=== PATIENT | female | born 1945 | race Asian ===

== ENCOUNTER 2020-05-22 12:40 | Emergency (ER) | payer MEDICARE, SELFPAY ==
[2020-05-22 13:59] VITALS: BP 151/91; PULSE 83; RESP 16; TEMP 36.1; O2SAT 97; BMI 22.9
--- NOTE | 2020-05-22 14:11 | ED_ITS ---
HPI - General Adult General Chief complaint: General Medical Stated complaint: med refill Time Seen by Provider: 05/22/20 13:52 Source: patient Mode of arrival: ambulatory Limitations: no limitations History of Present Illness HPI narrative: Patient is here seeking medication refill. She tells me she has a few tablets left of all of her medications and her last doses were this morning. She moved here from [place] and has an upcoming appointment with a primary care doctor on August 13 (Dr Hastings). No complaints. Associated symptoms: denies other symptoms Related Data Previous Rx's Medication Instructions Recorded atorvastatin 10 mg PO DAILY #60 tab 05/22/20 bisoprolol fumarate 2.5 mg PO BID #120 tab 05/22/20 hydralazine 25 mg PO BID #120 tab 05/22/20 losartan-hydrochlorothiazide 1 tab PO BID #120 tab 05/22/20 metformin 1,000 mg PO BID #120 tab 05/22/20 Allergies Allergy/AdvReac Type Severity Reaction Status Date / Time No Known Allergies Allergy Verified 05/22/20 13:59 Review of Systems Review of Systems: Yes all other systems are reviewed and are negative Constitutional: Constitutional: Reports no additional constitutional complaints, Denies body ache(s), Denies chills, Denies fever(s), Denies headache(s) and Denies weakness Eyes: Eyes: Reports no additional eye complaints and Denies change in vision ENT: Reports system reviewed and no additional complaints, except as documented, Denies dizziness, Denies headache(s), Denies nasal congestion, Denies nasal discharge and Denies neck pain Cardiovascular: Cardiovascular: Reports no additional cardiovascular complaints, Denies chest pain, Denies leg edema and Denies dyspnea Respiratory: Respiratory: Reports no additional respiratory complaints, Denies cough and Denies dyspnea Gastrointestinal: Gastrointestinal: Reports no additional gastrointestinal complaints, Denies abdominal pain, Denies diarrhea, Denies nausea and Denies vomiting Genitourinary: Genitourinary: Reports no additional female genitourinary complaints and Denies urinary incontinence Musculoskeletal: Musculoskeletal: Reports no additional musculoskeletal complaints, Denies back pain, Denies arthralgias, Denies joint swelling, Denies neck pain, Denies numbness and Denies tingling Integumentary/Breasts: Skin/Breast: Reports system reviewed and no additional complaints, except as docu and Denies rash Neurologic: Reports system reviewed and no additional complaints, except as documented, Denies Abnormal speech present, Denies dizziness, Denies headach e(s), Denies numbness, Denies tingling and Denies weakness PMFSH Past Medical History Attestation statement: The following information was validated with the patient. Source: old records reviewed, obtained from family and nursing notes reviewed Medical History Diabetes High cholesterol HTN (hypertension) Trigger finger of right thumb Surgical History H/O: hysterectomy Social History Social History Advance Directives: No Advance Directives Information Provided: No Physical Exam Vital Signs: Vital Signs: Vital Signs Temp Pulse Resp BP Pulse Ox 05/22/20 13:59 96.9 F 83 16 151/91 H 97 Body Mass Index 22.9 Const: General: cooperative, healthy appearing, comfortable and no acute distress Orientation/consciousness: patient oriented x3 Limitations: no limitations HENMT: Head: Yes normal to inspection Ears: hearing grossly normal bilaterally General nose exam: Normal external nose present Face and sinus: Yes normal facial exam Mouth: Normal oral and palatal mucosa present Throat: Yes posterior oropharynx normal Eyes: General: appearance normal, both eyes and all related structures Pupils: Equal, round and reactive pupils present Neck: Neck: Yes normal visual inspection Chest: Chest palpation & inspection: normal inspection of the chest Resp: Effort & Inspection: normal respiratory effort Auscultation: clear to auscultation bilaterally Cardio: Rate: regular rate Rhythm: regular rhythm Peripheral pulses: Peripheral pulses 2+ throughout GI: Inspection: Yes normal to inspection Palpation (GI): Soft to palpation and nontender Auscultation: normal bowel sounds Back/Spine/Pelvis: Thoracic/Lumbar Spine: thoracic and lumbar spine normal to inspection Skin: General skin exam: no rashes or lesions noted Neuro: General: patient oriented x3, no focal motor deficits and normal sensation to monofilament Cranial nerves: Yes Equal, round and reactive pupils present Cognition (Neuro): normal cognition Speech: No Abnormal speech present Gait exam (Neuro): Normal gait present Motor exam (neuro): 5/5 motor strength present throughout Extrem: General: Yes normal to inspection Course Course Course Narrative: Gave 2 month supply of medications. She has appt with new PCP 08/13. Discharge Plan Discharge Clinical Impression: Medication refill Patient Disposition: Home, Self-Care Instructions: Medicine Refill (ED) Additional Instructions: Keep your appointment with Dr Hastings Prescriptions: New losartan-hydrochlorothiazide 50-12.5 mg tablet 1 tab PO BID Qty: 120 RF: 0 hydralazine 25 mg tablet 25 mg PO BID Qty: 120 RF: 0 metformin 1,000 mg tablet 1,000 mg PO BID Qty: 120 RF: 0 atorvastatin 10 mg tablet 10 mg PO DAILY Qty: 60 RF: 0 bisoprolol fumarate 5 mg tablet 2.5 mg PO BID Qty: 120 RF: 0 Referrals: Po,Varun Guardado MD [Primary Care Provider] - 2 days
== END 2020-05-22 14:50 | disposition home or self-care (01) ==
PROVIDERS: Emergency Provider Emergency Medicine; PCP Internal Medicine
DX: Z76.0 Encounter for issue of repeat prescription (principal)
CPT/HCPCS: 99283

== ENCOUNTER 2020-08-09 07:32 | Outpatient (REF) | payer MEDICARE, SELFPAY ==
[2020-08-09 08:35] LABS: MANUAL DIFF FLAG NO
[2020-08-09 08:40] LABS: Basophils Absolute Auto 0.1 X10*3/uL (0.0-0.2); Basophils Percent Auto 0.7 % (0-2); Eosinophils Absolute Auto 0.4 X10*3/uL (0.0-0.4); Hematocrit 42.9 % (37-47); Hemoglobin 14.7 g/dl (12.0-16.0); Imm Gran Abs Auto 0.05 X10*3/uL (0.00-0.03); Imm Gran Pct Auto 0.7 % (0.0-0.4); Lymphocytes Absolute Auto 2.4 X10*3/uL (1.2-4.9); Lymphocytes Percent Auto 31.3 % (20-40); Mean Corpuscular HGB Conc 34.3 g/dl (31.0-35.0); Mean Corpuscular Hemoglobin 29.5 pg (27.0-33.0); Mean Platelet Volume 10.4 fL (9.4-12.3); Monocytes Absolute Auto 0.7 X10*3/uL (0.1-1.2); Neutrophils Percent Auto 53.3 % (45-73); Platelet Count 272 X10*3/uL (160-400); Red Blood Count 4.99 X10*6/uL (4.20-5.50); White Blood Count 7.6 X10*3/uL (4.8-10.8)
[2020-08-09 08:57] LABS: Anion Gap 13 (12-20); Blood Urea Nitrogen 16 mg/dL (9-16); Calcium 10.2 mg/dL (8.4-10.2); Carbon Dioxide 31 mmol/L (22-29); Chloride 95 mmol/L (96-108); Cholesterol 144 mg/dL; Estimated Glomerular Filt Rate > 60; Glucose Fasting 143 mg/dL (60-99); HDL Cholesterol 59 mg/dL; LDL Cholesterol Calculated 62 mg/dl; Potassium 4.6 mmol/l (3.3-5.1); Sodium 134 mmol/L (135-145); Triglycerides 115 mg/dL
[2020-08-09 09:14] LABS: Estimated Average Glucose 137 mg/dL; Hemoglobin A1c % 6.4 %
== END 2020-08-09 07:33 | disposition home or self-care (01) ==
LOC: HO.LAB 07:32
PROVIDERS: PCP Internal Medicine; Visit Provider Nurse Practitioner Family
DX: E78.00 Pure hypercholesterolemia, unspecified (principal); E11.9 Type 2 diabetes mellitus without complications; I10 Essential (primary) hypertension; H57.9 Unspecified disorder of eye and adnexa
CPT/HCPCS: 36415; 80048; 80061; 83036; 85025

== ENCOUNTER 2020-08-17 11:48 | Outpatient (REF) | payer MEDICARE, SELFPAY ==
--- NOTE | 2020-08-17 11:53 | ECG_ITS ---
Test Reason : CP Blood Pressure : / mmHG Vent. Rate : 070 BPM Atrial Rate : 070 BPM P-R Int : 150 ms QRS Dur : 084 ms QT Int : 454 ms P-R-T Axes : 068 016 138 degrees QTc Int : 490 ms Normal sinus rhythm Left atrial enlargement Left ventricular hypertrophy with repolarization abnormality ; ischemia cannot be excluded ECG No previous ECGs available Referred By: Varun Sesay Electronically Signed By: CESARIO CORREA
[2020-08-17 13:48] LABS: Free T4 (Free Thyroxine) 1.23 ng/dL (0.71-1.85); Thyroid Stimulating Hormone 1.37 uIU/mL (0.32-4.0); Vitamin D 25-OH Total 34.4 ng/mL (>30)
[2020-08-17 13:58] LABS: Creatinine Urine 49.35 mg/dL; Microalbum/Creatinine Ratio Ur 735.5 ug/mg cr
[2020-08-17 14:07] LABS: Folate > 20.0 ng/mL (> or = 4.0); Vitamin B12 489 pg/mL (200-900)
[2020-08-17 14:16] LABS: Glucose Urine UA NEG (NEG); Leukocyte Esterase Urine NEG (NEG); Nitrite Urine NEG (NEG); PH 6.5 (5.0-8.0); Urine Blood NEG (NEG); Urine Ketones NEG (NEG); Urine Protein 1+ MG/DL (NEG-TRACE)
[2020-08-17 14:20] LABS: Appearance Urine CLEAR; Color Urine YELLOW
[2020-08-17 15:05] LABS: Mucus Urine TRACE /LPF; RBC Urine 0-2 /HPF (0); WBC Urine 0 /HPF (0-4)
== END 2020-08-17 11:49 | disposition home or self-care (01) ==
LOC: HO.LAB 11:48
PROVIDERS: PCP Internal Medicine; Visit Provider Internal Medicine
DX: E11.65 Type 2 diabetes mellitus with hyperglycemia (principal); R79.89 Other specified abnormal findings of blood chemistry
CPT/HCPCS: 36415; 81001; 82043; 82306; 82607; 82746; 84439; 84443; 93005

== ENCOUNTER 2021-02-28 06:57 | Outpatient (REF) | payer MEDICARE, SELFPAY ==
[2021-02-28 08:54] LABS: Blood Urea Nitrogen 18 mg/dL (9-16); Estimated Glomerular Filt Rate > 60
[2021-02-28 10:27] LABS: Glucose Urine UA NEG (NEG); Leukocyte Esterase Urine 1+ (NEG); Nitrite Urine NEG (NEG); Urine Blood NEG (NEG); Urine Ketones NEG (NEG); Urine Protein TRACE MG/DL (NEG-TRACE)
[2021-02-28 10:34] LABS: Color Urine YELLOW
[2021-02-28 10:35] LABS: Appearance Urine HAZY
[2021-02-28 11:04] LABS: Creatinine Urine 91.79 mg/dL
[2021-02-28 11:56] LABS: Bacteria Urine TRACE /LPF; RBC Urine 0-2 /HPF (0); Squamous Epithelial Cell Urine TRACE /LPF; WBC Urine 0-2 /HPF (0-4)
== END 2021-02-28 06:58 | disposition home or self-care (01) ==
LOC: HO.LAB 06:57
PROVIDERS: PCP Internal Medicine; Visit Provider Internal Medicine
DX: R10.32 Left lower quadrant pain (principal); E11.65 Type 2 diabetes mellitus with hyperglycemia
CPT/HCPCS: 36415; 81001; 82565; 84520

== ENCOUNTER 2021-03-21 08:48 | Outpatient (REF) | payer MEDICARE, SELFPAY ==
--- NOTE | ~2021-03-21 | CT_ITS ---
EXAMINATION: CT ABDOMEN AND PELVIS WITH CONTRAST CLINICAL INFORMATION: Left lower quadrant pain. COMPARISON: None TECHNIQUE: Multidetector volumetric images were obtained from the superior aspect of the liver through the pubic symphysis following administration 85 mL of Omnipaque 350 intravenous contrast. Sagittal and coronal reformatted images were obtained on the technologist's workstation. Oral contrast: No This CT examination was performed using dose optimization techniques as appropriate, variously including the following: *Automated exposure control *Adjustment of mA and/or kV according to patient size (this includes techniques or standardized protocols for targeted exams where dose is matched to indication/reason for exam; i.e. extremities or head) *Use of iterative reconstruction technique DLP: 261 mGy-cm FINDINGS: LUNG BASES: Minimal atelectatic changes are seen in the right middle lobe and lingula. The heart size is normal. LIVER, GALLBLADDER, AND BILIARY TREE: The liver is normal in size, shape and attenuation. No focal lesion or intrahepatic ductal dilatation is seen. There are no radiopaque gallstones. There is mild thickening of the inner gallbladder wall on axial image 34/3, question small polyps. No wall thickening is seen. PANCREAS: Unremarkable. SPLEEN: Unremarkable. ADRENAL GLANDS: The adrenal glands are symmetrical and normal. KIDNEYS AND URETERS: The kidneys are normal in size, shape, and attenuation. No hydronephrosis, hydroureter, or calculi are seen. No perinephric stranding. There are small hypodense nonenhancing lesions in the mid pole and lower pole of the left kidney. BLADDER: Unremarkable. GASTROINTESTINAL TRACT: There is mild mural thickening of the sigmoid colon. The rest the colon is unremarkable. A few scattered diverticula are seen. The small bowel loops are normal caliber. The stomach is nondistended and appears unremarkable. ABDOMINAL WALL: There is a small umbilical hernia containing fat. LYMPH NODES: Normal. VASCULAR: Unremarkable. PELVIC VISCERA: There is mild mural thickening involving the sigmoid colon with scattered diverticula. No pericolic fat stranding is seen. The rest of the colon is unremarkable. OSSEOUS STRUCTURES: No lytic or sclerotic process seen. CT/CT abdomen pelvis w con IMPRESSION: Nonspecific mild mural thickening sigmoid colon. There are scattered diverticula seen throughout the colon but no pericolic fat stranding or findings suggestive of diverticulitis. Hypodense lesions in the mid and lower pole left kidney, likely small cysts.
[2021-03-21] MEDS: iohexoL 350 MG/ML 100 ML INFUS..BTL IV (11:33)
[2021-03-21] MEDS: Barium Sulfate Oral (Berry) 450 ML ORAL.SUSP 900 ML PO (11:36)
== END 2021-03-21 08:49 | disposition home or self-care (01) ==
LOC: HO.CT 08:48
PROVIDERS: Visit Provider Internal Medicine
DX: R10.32 Left lower quadrant pain (principal)
CPT/HCPCS: 74177; Q9967